=== PATIENT | male | born 1960 | race Caucasian/White ===

== ENCOUNTER 2016-09-07 10:35 | Outpatient (CLI) | payer BC ==
--- NOTE | 2016-09-07 10:59 | RAD ---
2 VIEWS OF CHEST: Date: 09/07/16 COMPARISON: 12/24/13. HISTORY: Mucopurulent chronic bronchitis. FINDINGS: Two views of the chest show normal sized cardiomediastinal silhouette. The patient is status post st ernotomy. There is no evidence of consolidation, mass, or pleural effusion. Degenerative changes are seen in the spine. IMPRESSION: No evidence of acute cardiopulmonary disease. POS: [facility]
== END 2016-09-07 10:36 | disposition home or self-care (01) ==
LOC: BURRAD 10:35
PROVIDERS: ATTEND Family Medicine
DX: J41.1 Mucopurulent chronic bronchitis (principal)
CPT/HCPCS: 71020

== ENCOUNTER 2018-09-28 13:37 | Emergency (ER) | payer BC ==
[2018-09-28 13:59] LABS: #Basophils 0.1 thou/uL (0.0-0.2); #Eosinphils 0.4 thou/uL (0.0-0.7); #Lymphocytes 1.2 thou/uL (1.20-3.40); #Monocytes 0.5 thou/uL (0.11-0.59); #Neutrophils 4.6 thou/uL (1.40-6.50); %Basophils 1.1 % (0.0-1.0); %Eosinophils 5.3 % (0.0-10.0); %Lymphocytes 17.9 % (21.0-51.0); %Monocytes 7.8 % (0.0-10.0); %Neutrophils 67.8 % (42.0-75.0); Hemoglobin 13.9 g/dL (14.0-18.0); Mean Corpuscular HGB CONC 35.4 g/dL (32.0-36.0); Mean Corpuscular Hemoglobin 32.9 pg (27.0-31.0); Platelet Count 273 thou/uL (130-400); Red Blood Cell (RBC) Count 4.22 mill/uL (4.70-6.10); White Blood Cell (WBC) Count 6.8 thou/uL (4.8-10.8)
[2018-09-28 14:15] LABS: INR-International Normal Ratio 0.9; PTT 27.3 SEC (22.9-36.1); Prothrombin Time 12.7 SEC (12.0-14.7)
[2018-09-28 14:17] LABS: ALT (SGPT) 18 U/L (8-55); AST (SGOT) 20 U/L (5-34); Albumin 4.2 g/dL (3.5-5.0); Alkaline Phosphatase 106 U/L (40-150); Anion Gap 17 mmol/L (10-20); BUN (Urea Nitrogen) 15 mg/dL (8.4-25.7); Bilirubin, Total 0.4 mg/dL (0.2-1.2); Calc. Creatinine Clearance 0 mL/min (70-130); Calcium 9.5 mg/dL (7.8-10.44); Carbon Dioxide 23 mmol/L (22-29); Chloride 104 mmol/L (98-107); Estimated GFR-MDRD 63; Globulin 2.5 g/dL (2.4-3.5); Glucose 361 mg/dL (70-105); Potassium 4.2 mmol/L (3.5-5.1); Protein, Total 6.7 g/dL (6.0-8.3); Sodium 140 mmol/L (136-145)
[2018-09-28] MEDS ORDERED: Aspirin Chewable 81 MG TAB ONE (14:42)
[2018-09-28] MEDS ORDERED: Insulin Regular 300 UNITS/3 ML VIAL ONE (14:51)
--- NOTE | 2018-09-28 17:52 | RAD ---
PORTABLE CHEST: 09/28/18 An AP portable film at 1402 is compared with the 09/07/16 study. The heart is unchanged in size considering differences in projection. There is no prominent cardiomeg jeanna, vascular congestion, edema, or pleural effusion. The lungs are clear. The trachea is midline. IMPRESSION: No acute thoracic finding. POS: [facility]
== END 2018-09-28 16:35 | disposition short-term general hospital (02) ==
LOC: BURERS 13:37
DX: R07.9 Chest pain, unspecified (principal); R55 Syncope and collapse; I25.2 Old myocardial infarction; E11.9 Type 2 diabetes mellitus without complications; I10 Essential (primary) hypertension; E78.00 Pure hypercholesterolemia, unspecified; F42.9 Obsessive-compulsive disorder, unspecified; Z87.891 Personal history of nicotine dependence; Z79.899 Other long term (current) drug therapy; Z79.84 Long term (current) use of oral hypoglycemic drugs
CPT/HCPCS: 36415; 71045; 80053; 84484; 85025; 85610; 85730; 93005; 96374; J1815

== ENCOUNTER 2019-01-03 19:47 | Emergency (ER) | payer BC ==
[2019-01-03] MEDS ORDERED: Ketorolac Tromethamine 30 MG/ML VIAL ONE (20:10)
[2019-01-03 20:29] LABS: ALT (SGPT) 16 U/L (8-55); AST (SGOT) 16 U/L (5-34); Albumin 4.4 g/dL (3.5-5.0); Alkaline Phosphatase 114 U/L (40-150); Anion Gap 19 mmol/L (10-20); BUN (Urea Nitrogen) 11 mg/dL (8.4-25.7); Bilirubin, Total 0.4 mg/dL (0.2-1.2); Calc. Creatinine Clearance 0 mL/min (70-130); Calcium 9.8 mg/dL (7.8-10.44); Carbon Dioxide 22 mmol/L (22-29); Chloride 104 mmol/L (98-107); Estimated GFR-MDRD 71; Globulin 2.8 g/dL (2.4-3.5); Glucose 120 mg/dL (70-105); Lipase 101 U/L (8-78); Potassium 4.1 mmol/L (3.5-5.1); Protein, Total 7.2 g/dL (6.0-8.3); Sodium 141 mmol/L (136-145)
[2019-01-03 20:33] LABS: #Basophils 0.1 thou/uL (0.0-0.2); #Eosinphils 0.3 thou/uL (0.0-0.7); #Lymphocytes 1.2 thou/uL (1.20-3.40); #Monocytes 0.9 thou/uL (0.11-0.59); #Neutrophils 6.3 thou/uL (1.40-6.50); %Basophils 0.9 % (0.0-1.0); %Eosinophils 3.5 % (0.0-10.0); %Lymphocytes 13.1 % (21.0-51.0); %Monocytes 9.9 % (0.0-10.0); %Neutrophils 72.6 % (42.0-75.0); Hemoglobin 13.2 g/dL (14.0-18.0); Mean Corpuscular HGB CONC 34.3 g/dL (32.0-36.0); Mean Corpuscular Hemoglobin 31.9 pg (27.0-31.0); Mean Platelet Volume 7.4 fL (7.4-10.4); Platelet Count 234 thou/uL (130-400); RBC Distribution Width 11.6 % (11.5-14.5); Red Blood Cell (RBC) Count 4.14 mill/uL (4.70-6.10); White Blood Cell (WBC) Count 8.7 thou/uL (4.8-10.8)
[2019-01-03] MEDS ORDERED: Morphine 4 MG/ML VIAL ONE (20:51)
[2019-01-03] MEDS ORDERED: Ondansetron PF 4 MG/2 ML Vial ONE (20:52)
--- NOTE | 2019-01-03 21:25 | CT ---
CT ABDOMEN AND PELVIS WITHOUT CONTRAST: 01/03/2019 COMPARISON: 09/28/2018 FINDINGS: The lung bases are clear. The liver, spleen, and pancreas are unremarkable. A few tiny gallstones a re seen in the gallbladder without any evidence of inflammatory change or wall thickening around it. The adrenal glands are unremarkable. There are a few tiny calculi in each kidney, but no sign of ob struction. There is no evidence of ureteral calculi. The abdominal aorta is normal in caliber. CT of the pelvis shows sigmoid diverticulosis without signs of diverticulitis. A moderate amount of fecal material is seen in the right colon. No free air or inflammatory change is seen. Minimal fat- filled inguinal hernias are noted. IMPRESSION: 1. Tiny bilateral nonobstructing renal calculi. 2. No acute abdominal or pelvic findings. POS: [facility]
== END 2019-01-03 21:40 | disposition home or self-care (01) ==
LOC: BURERS 19:47
DX: R10.84 Generalized abdominal pain (principal); I25.2 Old myocardial infarction; E11.9 Type 2 diabetes mellitus without complications; I10 Essential (primary) hypertension; E78.5 Hyperlipidemia, unspecified; F42.9 Obsessive-compulsive disorder, unspecified; Z87.891 Personal history of nicotine dependence; Z79.899 Other long term (current) drug therapy; Z79.84 Long term (current) use of oral hypoglycemic drugs; Z79.82 Long term (current) use of aspirin
CPT/HCPCS: 36415; 74176; 80053; 83690; 84484; 85025; 93005; 96361; 96374; 96375; J1885; J2270; J2405

== ENCOUNTER 2019-01-05 07:25 | Emergency (ER) | payer BC ==
[2019-01-05 07:49] LABS: Bilirubin Negative (Negative); Blood, Urine Negative (Negative); Clarity Clear (Clear); Glucose, Urine (Dipstick) 500 mg/dL (Negative); Leukocyte Negative (Negative); Nitrite Negative (Negative); Protein, Urine (Dipstick) Trace mg/dL (Neg-Trace)
[2019-01-05] MEDS ORDERED: Morphine 4 MG/ML VIAL ONE (08:04)
[2019-01-05] MEDS ORDERED: Ondansetron PF 4 MG/2 ML Vial ONE (08:04)
[2019-01-05 08:10] LABS: #Basophils 0.1 thou/uL (0.0-0.2); #Eosinphils 0.2 thou/uL (0.0-0.7); #Lymphocytes 0.4 thou/uL (1.20-3.40); #Monocytes 0.7 thou/uL (0.11-0.59); #Neutrophils 8.7 thou/uL (1.40-6.50); %Basophils 0.5 % (0.0-1.0); %Eosinophils 2.3 % (0.0-10.0); %Neutrophils 86.3 % (42.0-75.0); Hemoglobin 14.2 g/dL (14.0-18.0); Mean Corpuscular HGB CONC 33.9 g/dL (32.0-36.0); Mean Corpuscular Hemoglobin 31.5 pg (27.0-31.0); Mean Corpuscular Volume 92.8 fL (78.0-98.0); Mean Platelet Volume 7.1 fL (7.4-10.4); Platelet Count 225 thou/uL (130-400); RBC Distribution Width 11.6 % (11.5-14.5); Red Blood Cell (RBC) Count 4.51 mill/uL (4.70-6.10); White Blood Cell (WBC) Count 10.1 thou/uL (4.8-10.8)
[2019-01-05 08:18] LABS: ALT (SGPT) 13 U/L (8-55); AST (SGOT) 13 U/L (5-34); Albumin 4.1 g/dL (3.5-5.0); Alkaline Phosphatase 106 U/L (40-150); Anion Gap 15 mmol/L (10-20); BUN (Urea Nitrogen) 13 mg/dL (8.4-25.7); Bilirubin, Total 0.4 mg/dL (0.2-1.2); Calc. Creatinine Clearance 0 mL/min (70-130); Calcium 9.4 mg/dL (7.8-10.44); Carbon Dioxide 22 mmol/L (22-29); Chloride 105 mmol/L (98-107); Estimated GFR-MDRD 80; Globulin 2.6 g/dL (2.4-3.5); Glucose 215 mg/dL (70-105); Lipase 109 U/L (8-78); Potassium 4.2 mmol/L (3.5-5.1); Protein, Total 6.7 g/dL (6.0-8.3); Sodium 138 mmol/L (136-145)
[2019-01-05] MEDS ORDERED: Ketorolac Tromethamine 30 MG/ML VIAL ONE (09:17)
[2019-01-05] MEDS ORDERED: Iopamidol 370 76% 100 ML VIAL ONE (12:29)
--- NOTE | 2019-01-05 13:10 | ULT ---
GALLBLADDER ULTRASOUND: DATE: 01/05/2019. FINDINGS: Comparison is made with the noncontrast CT dated 01/03. That exam questioned some tiny gallstones. This ultrasound exam of the right upper quadrant shows some enlargement of the liver, measuring 19.4 cm in oblique sagittal dimension. Internally, however, no masses, dilated ducts, or focal pathology were seen. With reference to the gallbladder, there was some sludge in it. These images did not con firm stones. One portion of the wall was slightly thick at 3 mm, but most of the wall is not. This may be even a spurious measurement. The common bile duct was upper normal at about 6 mm in caliber. The pancreas was largely obscured by gas. The right kidney showed no acute changes and was 13.3 cm long. IMPRESSION: Some sludge in the gallbladder, exam otherwise unremarkable, except for mild hepatomegaly. POS: [facility]
--- NOTE | 2019-01-05 13:33 | CT ---
CT ABDOMEN AND PELVIS WITH CONTRAST: DATE: 01/05/2019. FINDINGS: Comparison is made with the ultrasound done earlier today and with a noncontrast CT dated 01/03/2019. Today's study was done with IV contrast I am told due to a concern about possible bowel ischemia. The lung bases are clear. The liver is generous in size but internally no focal pathology was seen. The spleen is normal in size. There is no stranding around the pancreas to suggest pancreatitis. O nce again, there is a hint of some tiny calcifications in the gallbladder, though stones were not con firmed on the ultrasound done earlier today. There are a few nonobstructing calculi in the kidneys. A small cyst is seen in the upper pole of the right kidney and does not appear to be of concern. There is no sign of aortic aneurysm. Arteriosclerotic change is relatively minimal in this patient. All mesenteric vessels seem to fill well. There are a few loops of proximal small bowel that are fluid-filled and minimally dilated, when 1 quinten suring up to about 2.6 cm in diameter. There is not significant bowel wall thickening at any junctur e. There is no stranding around bowel. He does have sigmoid diverticulosis, but there continues to be no finding of diverticulitis. A moderate amount of fecal material remains in the right colon. No free air or free fluid was detected. CT of the pelvis shows no pelvic masses, fluid collections, or inflammatory changes. The prostate is large. IMPRESSION: 1. Mild hepatomegaly. 2. One or 2 tiny calcifications suggested in the gallbladder without findings of cholecystitis. If there is a suspicion of such, a HIDA scan could be useful to check function of the gallbladder. 3. No CT signs of pancreatitis. 4. A few mildly dilated loops of fluid-filled proximal small bowel, a nonspecific finding. This is sometimes an indicator of mild enteritis. 5. Diverticulosis without diverticulitis. 6. Prostatic enlargement. 7. Overall, minimal change since the prior scan other than some of the bowel loops being minimally m ore prominent. POS: [facility]
== END 2019-01-05 10:26 | disposition home or self-care (01) ==
LOC: BURERS 07:25
DX: K82.8 Other specified diseases of gallbladder (principal); R11.2 Nausea with vomiting, unspecified; I25.2 Old myocardial infarction; E11.9 Type 2 diabetes mellitus without complications; I10 Essential (primary) hypertension; E78.00 Pure hypercholesterolemia, unspecified; F42.9 Obsessive-compulsive disorder, unspecified; Z87.891 Personal history of nicotine dependence; Z79.899 Other long term (current) drug therapy; Z79.84 Long term (current) use of oral hypoglycemic drugs; Z79.82 Long term (current) use of aspirin
CPT/HCPCS: 36416; 74177; 76705; 80053; 81003; 83605; 83690; 84484; 85025; 93005; 96374; 96375; J1885; J2270; J2405; Q9967